=== PATIENT | male | born 1990 | race Two or more races ===

== ENCOUNTER 2020-02-09 17:04 | Inpatient (IN) | payer OTHER ==
[~2020-02-09] VITALS: Ht 180.3 cm; Wt 58.8 kg
[2020-02-09] MEDS ORDERED: NALOXONE HCL 0.4 MG/ML VIAL ONE (17:10)
[2020-02-09] MEDS ORDERED: LORazepam 2MG/ML-1ML VIAL ONE (17:14)
[2020-02-09] MEDS ORDERED: NALOXONE HCL 0.4 MG/ML VIAL IV ONE (17:15)
[2020-02-09 17:26] LABS: Basophils # (auto) 0 10 ^3/uL (0-0.2); Basophils % (auto) 0.3 % (0.0-2.0); Eosinophils # (auto) 0 10 ^3/uL (0-0.8); Hematocrit 44.2 % (41.0-53.0); Hemoglobin 14.4 g/dL (13.5-17.5); Lymphocytes # (auto) 0.7 10 ^3/uL (0.4-5.4); Lymphocytes % (auto) 5.1 % (10.0-50.0); Mean Corpuscular Hemoglobin 29.1 pg (28.0-32.0); Mean Corpuscular Hgb Conc. 32.6 g/dL (32.0-36.0); Mean Corpuscular Volume 89.3 fL (80.0-100.0); Monocytes # (auto) 1.7 10 ^3/uL (0-1.3); Monocytes % (auto) 12.7 % (0.0-12.0); Neutrophils # (auto) 11.2 10 ^3/uL (1.6-8.6); Neutrophils % (auto) 81.9 % (37.0-80.0); Platelet Count (auto) 343 10^3/uL (140-450); Red Blood Cells 4.95 10^6/uL (4.5-5.90); Red Cell Distribution Width 14.4 % (11.8-14.3); White Blood Cell 13.7 10^3/uL (4.4-10.8)
[2020-02-09 17:28] LABS: Urine Amorphous Crystal FEW /hpf (None Seen); Urine Bacteria FEW /hpf (None Seen); Urine Blood Negative /uL (Negative); Urine Hyaline Cast MANY /lpf (0 - 2); Urine Mucus FEW (None Seen); Urine Specific Gravity 1.021 (1.001-1.035); Urine WBC 17 /hpf (0 - 3)
[2020-02-09] MEDS ORDERED: LORazepam 2MG/ML-1ML VIAL IV ONE (17:30)
[2020-02-09 17:42] LABS: Albumin 4.5 g/dL (3.4-5.0); Anion Gap 7 (5-15); Blood Urea Nitrogen 19 mg/dL (7-18); Calcium 8.5 mg/dL (8.5-10.1); Carbon Dioxide 27 mmol/L (21-32); Chloride 102 mmol/L (98-107); Glucose 70 mg/dL (74-106); Magnesium 2.9 mg/dL (1.6-2.6); Potassium 5.3 mmol/L (3.5-5.1); Sodium 136 mmol/L (136-145)
[2020-02-09 17:45] LABS: Alanine Aminotransferase 35 U/L (16-61); Alkaline Phosphatase 90 U/L (45-117); Aspartate Aminotransferase 34 U/L (15-37); BUN/Creatinine Ratio 8.7; Bilirubin, Total 0.2 mg/dL (0.2-1.0); GFR African American 47 mL/min; GFR Non-African American 38 mL/min; Total Protein 8.3 g/dL (6.4-8.2)
[2020-02-09 17:46] LABS: Blood Alcohol < 3.0 mg/dL (0-5)
[2020-02-09 17:49] LABS: Alcohol, Urine < 3.0 mg/dL (0-10); Amphetamine Screen, Urine NEGATIVE (NEGATIVE); Barbiturate Scree,Urine NEGATIVE (NEGATIVE); Benzodiazephine Screen, Urine POSITIVE (NEGATIVE); Cannabinoid Screen, Urine POSITIVE (NEGATIVE); Cocaine Screen, Urine POSITIVE (NEGATIVE); Opiate Scree,Urine NEGATIVE (NEGATIVE); Phencyclidine Screen, Urine NEGATIVE (NEGATIVE)
[2020-02-09] MEDS ORDERED: SODIUM CHLORIDE 0.9% 2,000 ML IV ONE (18:00)
[2020-02-09] MEDS ORDERED: cefTRIAXone 1GM/50ML D5W 50 ML IV ONE (18:15)
[2020-02-09] MEDS ORDERED: methylPREDNISolone SOD SUCC 125 MG/2 ML VL IV ONE (18:15)
[2020-02-09] MEDS ORDERED: IPRATROPIUM BROM 0.5 MG/2.5ML INH SOL NEB ONE (18:15)
[2020-02-09] MEDS ORDERED: ALBUTEROL SULF 2.5 MG/0.5ML(0.5%) NEB SOLN NEB ONE (18:15)
[2020-02-09] MEDS ORDERED: FUROSEMIDE 20 MG/2 ML VIAL IV ONE (18:15)
[2020-02-09] MEDS ORDERED: SODIUM CHLORIDE 0.9% 1,000 ML IV SCH (18:53)
[2020-02-09] MEDS ORDERED: LACTATED RINGER'S 1,000 ML IV ONE (19:00)
[2020-02-09] MEDS ORDERED: FUROSEMIDE 100 MG/10ML VIAL IV ONE (19:00)
[2020-02-09] MEDS ORDERED: NITROGLYCERIN 0.4 MG SL TAB SL PRN (19:00)
[2020-02-09] MEDS ORDERED: LORazepam 0.5 MG TAB PO PRN (19:00)
[2020-02-09] MEDS ORDERED: HYDROcodone-ACET 5/325MG TAB PO PRN (19:00)
[2020-02-09] MEDS ORDERED: ACETAMINOPHEN 500 MG TAB PO PRN (19:00)
[2020-02-09] MEDS ORDERED: DOCUSATE SOD 100 MG CAP PO PRN (19:00)
[2020-02-09] MEDS ORDERED: ALUM & MAG HYDROX-SIMETH LIQ(MAALOX) 30 ML PO PRN (19:00)
[2020-02-09] MEDS ORDERED: ONDANSETRON HCL 4 MG/2 ML VIAL IV PRN (19:00)
[2020-02-09] MEDS ORDERED: MORPHINE SULF INJ 2 MG/ML SYRINGE 1ML IV PRN ×2 (19:00)
[2020-02-09 19:53] LABS: CRP High Sensitivity 0.87 mg/dL (< 0.3)
[2020-02-09 20:27] LABS: Cholesterol 253 mg/dL (< 200); HDL Cholesterol 65 mg/dL (40-59); LDL Cholesterol 165 mg/dL (< 100); Triglycerides 170 mg/dL (< 150)
[2020-02-09 20:50] LABS: Lactic Acid w/Reflex 3.8 mmol/L (0.4-2.0)
[2020-02-09] MEDS ORDERED: DOXYCYCLINE 100MG/250ML 250 ML IV SCH (22:00)
[2020-02-09] MEDS: BUDESONIDE (INHALATION) 180 MCG IH IN SCH (22:00)
[2020-02-09] MEDS: ALBUTEROL SULF HFA 90MCG INH 200DOSE IN SCH (22:00)
[2020-02-10] VITALS (7 sets, daily range): BP systolic 95–119; BP diastolic 58–79
[2020-02-10] MEDS: CLINDAMYCIN 600MG IV 50 ML IV SCH ×4 (00:44→22:06)
--- NOTE | 2020-02-10 04:45 | NUR ---
Telemetry admit from ER AIDATITA admitted to Telemetry unit after SBAR received. Patient oriented to EFREM HURTADO RN primary RN, unit, room, bed, and unit policies regarding patient care and visiting hours. Patient now on continuous telemetry monitoring, tele box # 3 and telemetry reading on arrival to unit is sinus rhythm at 96. Patient placed on bedside oxygen, weighed by bedscale and encouraged to call if they need something. All questions and concerns addressed, patient verbalized understanding.
[2020-02-10] MEDS: FUROSEMIDE 20 MG/2 ML VIAL IV SCH ×2 (05:34→17:18)
[2020-02-10] MEDS: ALBUTEROL SULF HFA 90MCG INH 200DOSE IN SCH ×3 (06:00→13:08)
[2020-02-10] MEDS ORDERED: MELA3TAB27 PO (06:11)
--- NOTE | 2020-02-10 06:15 | NUR ---
MEDICATION/SUBSTANCE USE Patient reports self medicating with Xanax, Oxycodone, OxyContin, Promethazine with codeine and marijuana two to three times daily for "a few years". Patient states he does not have prescriptions for these medications, he buys them "off the street".
[2020-02-10] MEDS: BUDESONIDE (INHALATION) 180 MCG IH IN SCH ×2 (07:12→09:41)
--- NOTE | 2020-02-10 08:00 | NUR ---
ASSESSMENT NOTE PT IS ALERT ORIENTED X4, CONFIRMED AFTER PT ANSWER ALL THE ORIENTATION QUESTIONS, ABLE TO SELF REPOSITION AND VERBALS HIS DEMANDS, CARO CATHETER TO GRAVITY, HARD OF HEARING NOTED, VERIFY WITH PT, PT STATED SINCE I WOKE UP I HAVE RINGING IN MY EAR>, PAIN 0/10, FALL RISK PRECAUTIONS, CALL LIGHT WITHIN REACH
[2020-02-10] MEDS: cefTRIAXone 1GM/50ML D5W 50 ML IV SCH (08:52)
[2020-02-10] MEDS: DexAMETHasone SOD PHOS 10MG/1ML VIAL INJ IV SCH (08:52)
[2020-02-10] MEDS: CHOLECALCIFEROL (VITD3) 2,000 UNIT CAP PO SCH (08:53)
[2020-02-10] MEDS: ZINC SULFATE 220mg CAP or TAB PO SCH (08:53)
[2020-02-10] MEDS: ASCORBIC ACID 1,000 MG TAB PO SCH (08:53)
[2020-02-10] MEDS: ENOXAPARIN SOD 40 MG/0.4 ML SYRINGE SC SCH (08:53)
--- NOTE | 2020-02-10 08:59 | NUR ---
POISON CONTROL CALLED FOLLOWING UP ON PT UPDATE AND VS
[2020-02-10 09:22] LABS: Basophils # (auto) 0 10 ^3/uL (0-0.2); Eosinophils # (auto) 0 10 ^3/uL (0-0.8); Hemoglobin 12.9 g/dL (13.5-17.5); Lymphocytes # (auto) 0.5 10 ^3/uL (0.4-5.4); Lymphocytes % (auto) 4.3 % (10.0-50.0); Mean Corpuscular Hemoglobin 28.3 pg (28.0-32.0); Mean Corpuscular Hgb Conc. 32.2 g/dL (32.0-36.0); Mean Corpuscular Volume 87.9 fL (80.0-100.0); Monocytes # (auto) 0.2 10 ^3/uL (0-1.3); Monocytes % (auto) 1.8 % (0.0-12.0); Neutrophils # (auto) 10.9 10 ^3/uL (1.6-8.6); Neutrophils % (auto) 93.9 % (37.0-80.0); Platelet Count (auto) 257 10^3/uL (140-450); Red Blood Cells 4.55 10^6/uL (4.5-5.90); Red Cell Distribution Width 13.7 % (11.8-14.3); White Blood Cell 11.6 10^3/uL (4.4-10.8)
[2020-02-10 09:33] LABS: Albumin 3.5 g/dL (3.4-5.0); Calcium 8.8 mg/dL (8.5-10.1)
[2020-02-10 09:37] LABS: BUN/Creatinine Ratio 10.6; Bilirubin, Total 0.7 mg/dL (0.2-1.0)
--- NOTE | 2020-02-10 09:59 | NUR ---
[facility]OL [facility] ZAINAB FROM POISON CONTROL CALLED STATED < REGARDING EAR RINGING, IT WILL RESOLVE BY IT SELF IN A FEW DAYS >
--- NOTE | 2020-02-10 10:07 | NUR ---
DR MCCONNELL AT BED SIDE FOLLOWING UP ON PT WITH NEW ORDERS
[2020-02-10] MEDS ORDERED: MECLIZINE HCL 25 MG TAB PO ONE (10:15)
[2020-02-10] MEDS ORDERED: MECLIZINE HCL 25 MG TAB PO PRN (10:15)
--- NOTE | 2020-02-10 10:39 | NUR ---
Saldana catheter dc'd Order to discontinue saldana catheter. Saldana dc'd with clean technique following deflation of balloon. Patient tolerated well with no complaints of pain. Continue care.350 ML YELLOW URINE, NO FOUL ODOR NOTED
--- NOTE | 2020-02-10 11:54 | NUR ---
BACK END WEB DEVELOPER RAQUEL RAGLAND CALLED PT IS NEGATIVE FOR COVID, PT WILL BE TRANSFER 286 B, PT MADE AWARE
--- NOTE | 2020-02-10 12:03 | NUR ---
REPORT GIVEN TO DEBRA RAGLAND WITH ALL PATIENT'S UPDATE
--- NOTE | 2020-02-10 12:05 | NUR ---
Report Report received from Lesia RAGLAND.
--- NOTE | 2020-02-10 12:19 | NUR ---
PATIENT TRANSFERRED OUT TO ROOM 286 [address] BY SHIRA RAGLAND, WITH ALL HIS BELONGING AND HOSPITAL CHART, STABLE, NO DISTRESS NOTED,
--- NOTE | 2020-02-10 16:06 | NUR ---
patient off unit Patient taken off unit for CT. No s/s of distress noted.
--- NOTE | 2020-02-10 16:15 | NUR ---
Patient back on unit Patient back on unit, no s/s of distress noted. Will continue to monitor.
--- NOTE | 2020-02-10 16:51 | NUR ---
Allergies Asked patient about any known allergies, patient denies having any allergies. Will update Allergies list.
--- NOTE | 2020-02-10 19:10 | NUR ---
END OF SHIFT NOTE Endorsed care to NOC OBIE Guerrier. No s/s of SOB or distress noted.
--- NOTE | 2020-02-10 19:35 | NUR ---
Opening Shift Note Assumed care of patient, awake and alert. No S/S of distress/SOB or pain noted. Instructed on POC and to call for assist PRN. Bed is in lowest locked position with bed rails up x2 and call light is within reach of the patient.
[2020-02-11 05:00] VITALS: BP 122/87
[2020-02-11 05:45] LABS: Basophils # (auto) 0 10 ^3/uL (0-0.2); Eosinophils # (auto) 0 10 ^3/uL (0-0.8); Hematocrit 36.2 % (41.0-53.0); Hemoglobin 11.8 g/dL (13.5-17.5); Lymphocytes # (auto) 0.8 10 ^3/uL (0.4-5.4); Lymphocytes % (auto) 5.6 % (10.0-50.0); Mean Corpuscular Hemoglobin 28.3 pg (28.0-32.0); Mean Corpuscular Hgb Conc. 32.7 g/dL (32.0-36.0); Mean Corpuscular Volume 86.8 fL (80.0-100.0); Monocytes # (auto) 0.9 10 ^3/uL (0-1.3); Monocytes % (auto) 6.7 % (0.0-12.0); Neutrophils # (auto) 12.2 10 ^3/uL (1.6-8.6); Neutrophils % (auto) 87.7 % (37.0-80.0); Platelet Count (auto) 271 10^3/uL (140-450); Red Blood Cells 4.18 10^6/uL (4.5-5.90); Red Cell Distribution Width 14.1 % (11.8-14.3); White Blood Cell 13.9 10^3/uL (4.4-10.8)
[2020-02-11] MEDS: CLINDAMYCIN 600MG IV 50 ML IV SCH ×3 (05:54→21:02)
[2020-02-11] MEDS: FUROSEMIDE 20 MG/2 ML VIAL IV SCH ×2 (05:56→18:43)
[2020-02-11 06:05] LABS: INR 1.02 (0.9-1.15); Partial Thromboplastin Time 29.5 sec (23.0-31.2)
[2020-02-11 06:09] LABS: Potassium 3.8 mmol/L (3.5-5.1)
[2020-02-11 06:22] LABS: Albumin 3.5 g/dL (3.4-5.0); BUN/Creatinine Ratio 14.8; Bilirubin, Total 0.6 mg/dL (0.2-1.0); Calcium 8.9 mg/dL (8.5-10.1); Magnesium 2.7 mg/dL (1.6-2.6)
--- NOTE | 2020-02-11 08:30 | NUR ---
Opening Shift Note Assumed care of patient, awake, alert and oriented x4. No S/S of distress/SOB or pain. Call light within reach, bedrails up x2. Instructed on POC will continue to monitor for changes Q1hr and PRN.
[2020-02-11 09:00] VITALS: BP 113/80
[2020-02-11] MEDS: cefTRIAXone 1GM/50ML D5W 50 ML IV SCH (09:35)
[2020-02-11] MEDS: ENOXAPARIN SOD 40 MG/0.4 ML SYRINGE SC SCH (09:36)
--- NOTE | 2020-02-11 09:40 | NUR ---
Medication held Per order, Pt. medication held due to a negative covid-19 test.
[2020-02-11] MEDS: CHOLECALCIFEROL (VITD3) 2,000 UNIT CAP PO SCH (09:44)
[2020-02-11] MEDS: ZINC SULFATE 220mg CAP or TAB PO SCH (09:44)
[2020-02-11] MEDS: ASCORBIC ACID 1,000 MG TAB PO SCH (09:44)
[2020-02-11] MEDS: DexAMETHasone SOD PHOS 10MG/1ML VIAL INJ IV SCH (09:45)
[2020-02-11] MEDS ORDERED: IOHEXOL 350 MG/ML 100ML IJ ONE (11:12)
[2020-02-11 13:00] VITALS: BP 123/77
--- NOTE | 2020-02-11 13:00 | NUR ---
R/O COVID-19 Per order, Pt. swabbed and specimen collected for R/O of Covid-19. Pt. now placed in room by himself until results of test come back.
[2020-02-11 17:00] VITALS: BP 128/89
--- NOTE | 2020-02-11 19:15 | NUR ---
Closing Shift Note Patient resting in bed. No distress noted. Report given. Will endorse care to the overnight stocker RN.
--- NOTE | 2020-02-11 19:30 | NUR ---
Opening Shift Note Received report from OBIE Damon. Assumed care of patient, awake and alert. No S/S of distress/SOB or pain. Instructed on POC and to callfor assist PRN, will continue to monitor for changes Q1hr and PRN.
[2020-02-11] MEDS: POTASSIUM CHL 10 Meq TABLET PO SCH (21:02)
[2020-02-11 22:00] VITALS: BP 116/73
[2020-02-12 05:00] VITALS: BP 121/83
[2020-02-12] MEDS: FUROSEMIDE 20 MG/2 ML VIAL IV SCH (05:37)
[2020-02-12] MEDS: CLINDAMYCIN 600MG IV 50 ML IV SCH ×2 (05:37→13:58)
--- NOTE | 2020-02-12 06:00 | NUR ---
IV insertion IV access obtained, via clean sterile technique by inserting 22 gauge catheter at right hand after attempt(s). IV secured properly. No trauma to site. Patient tolerated procedure well. IV removal IV DC'd with sterile technique, catheter fully intact. Pressure dressing applied to site. Patient tolerated procedure well.
[2020-02-12 06:01] LABS: Basophils # (auto) 0 10 ^3/uL (0-0.2); Basophils % (auto) 0.1 % (0.0-2.0); Eosinophils # (auto) 0.1 10 ^3/uL (0-0.8); Eosinophils % (auto) 0.6 % (0.0-7.0); Hematocrit 42.3 % (41.0-53.0); Lymphocytes # (auto) 1.8 10 ^3/uL (0.4-5.4); Lymphocytes % (auto) 17.4 % (10.0-50.0); Mean Corpuscular Hemoglobin 29.1 pg (28.0-32.0); Mean Corpuscular Volume 88.2 fL (80.0-100.0); Monocytes # (auto) 0.9 10 ^3/uL (0-1.3); Monocytes % (auto) 8.2 % (0.0-12.0); Neutrophils # (auto) 7.8 10 ^3/uL (1.6-8.6); Neutrophils % (auto) 73.7 % (37.0-80.0); Platelet Count (auto) 285 10^3/uL (140-450); Red Cell Distribution Width 13.7 % (11.8-14.3); White Blood Cell 10.5 10^3/uL (4.4-10.8)
[2020-02-12 06:20] LABS: Albumin 3.9 g/dL (3.4-5.0); Calcium 8.9 mg/dL (8.5-10.1); Magnesium 2.5 mg/dL (1.6-2.6); Potassium 3.3 mmol/L (3.5-5.1)
[2020-02-12 06:26] LABS: Bilirubin, Total 0.8 mg/dL (0.2-1.0); Total Protein 7.7 g/dL (6.4-8.2)
--- NOTE | 2020-02-12 08:30 | NUR ---
Opening Shift Note Assumed care of patient, awake and alert and oriented x4. No S/S of distress/SOB or pain. Call light within reach bedrails up x2, IV on right hand patent. Instructed on POC and to call for assist PRN, will continue to monitor for changes Q1hr and PRN.
[2020-02-12 09:00] VITALS: BP 108/72
[2020-02-12] MEDS: POTASSIUM CHL 10 Meq TABLET PO SCH (09:53)
[2020-02-12] MEDS: ENOXAPARIN SOD 40 MG/0.4 ML SYRINGE SC SCH (09:55)
[2020-02-12] MEDS: cefTRIAXone 1GM/50ML D5W 50 ML IV SCH (09:56)
--- NOTE | 2020-02-12 10:30 | NUR ---
Assessment Per ss consult for substance abuse. Patient is a 29-year-old male who is alert and oriented. Prior to admission patient lived with family and functioned independently. Per patient he lives in [facility] and came to visit some friends. Patient states he was consuming different drugs and became unconscious and his friend brought him to the hospital. Per patient he was hanging around with the wrong people and will not be consuming drugs again. Per patient he will return to his prior living arrangements post discharge. Patient refused resource.
[2020-02-12] MEDS ORDERED: POTASSIUM CHL 20 Meq TABLET PO ONE (11:15)
[2020-02-12] MEDS ORDERED: ATOR20TA PO (11:16)
[2020-02-12] MEDS ORDERED: DOXY-286 PO (11:17)
--- NOTE | 2020-02-12 13:46 | NUR ---
Cardiology Consult Spoke with Laney Rodriguez NP, regarding patient's echocardiogram. Echocardiogram image hasn't appeared yet. CYN Rodriguez, aware of pending discharge.
[2020-02-12 17:15] VITALS: BP 116/72
--- NOTE | 2020-02-12 19:00 | NUR ---
Discharge Discharge instructions given as ordered. Encourage to follow up with PMD as instructed. All questions and concerns addressed. Patient verbalized understanding. Medication reconciliation form completed and copy given to patient. Patient given shirt and and shoes from [facility] closet. IV removed with catheter intact, pressure dressing applied. Telemetry unit returned to ICU. Patient ambulated to vehicle via wheelchair with all personal belongings. No distress noted at time of departure.
[2020-02-12] MEDS ORDERED: ATORVASTATIN 20 MG TAB PO SCH (22:00)
== END 2020-02-12 18:29 | disposition home or self-care (01) | DRG 720 ==
LOC: ER 17:04 → TELE 17:05 → TELE-EAST 02-10 04:45 → TELE-WESTW 02-10 12:22
PROVIDERS: ADMIT Hospitalist; ATTEND Internal Medicine
DX: A41.9 Sepsis, unspecified organism (principal); I21.A1 Myocardial infarction type 2; N17.0 Acute kidney failure with tubular necrosis; J69.0 Pneumonitis due to inhalation of food and vomit; J96.01 Acute respiratory failure with hypoxia; Z20.828 Contact with and (suspected) exposure to other viral communicable diseases; E78.5 Hyperlipidemia, unspecified; F12.90 Cannabis use, unspecified, uncomplicated; T40.5X1A Poisoning by cocaine, accidental (unintentional), initial encounter; E87.5 Hyperkalemia; E87.6 Hypokalemia; H91.90 Unspecified hearing loss, unspecified ear; H93.19 Tinnitus, unspecified ear; Z79.899 Other long term (current) drug therapy; Z82.49 Family history of ischemic heart disease and other diseases of the circulatory system; Z83.3 Family history of diabetes mellitus
CPT/HCPCS: 36415; 36600; 70450; 71045; 71275; 80053; 80061; 80307; 80320; 81001; 82550; 82728; 82805; 83036; 83605; 83615; 83735; 83880; 84100; 84146; 84443; 84484; 85025; 85379; 85610; 85730; 86141; 86703; 86738; 87040; 87086; 87278; 87426; 93005; 93306; 94640; 99291; G0378; J0696; J1100; J3490